=== PATIENT | male | born 1965 ===

== ENCOUNTER 2020-12-01 22:31 | Emergency (ER) | payer OTHER, MEDICAID, SELFPAY ==
[2020-12-01 22:37] VITALS: BP 147/83; PULSE 79; RESP 18; TEMP 37.1; O2SAT 97
--- NOTE | 2020-12-01 22:40 | DI.RAD.S_ITS ---
PROCEDURE: XR FOOT RT MIN 3V INDICATIONS: pain in heel after fall from ladder TECHNIQUE: 3 views of the foot were acquired. COMPARISON: None. FINDINGS: Bones: Possible nondisplaced calcaneal fracture versus artifact. No suspicious bony lesions. Soft tissues: No tibiotalar joint effusion. Achilles tendon appears normal. IMPRESSION: Possible nondisplaced calcaneal fracture versus artifact. Recommend clinical correlation and follow-up. No significant discrepancy with the night shift manager radiology preliminary report. Dictated by: Gallo Mills M.D. on 12/02/2020 at 9:20 Approved by: Gallo Mills M.D. on 12/02/2020 at 9:23
--- NOTE | 2020-12-02 00:18 | ED.LOWEXIN ---
HPI - Extremity Injury (Lower) General Chief Complaint: Extremity Injury, Lower Stated Complaint: fell off a ladder, hurt heel Time Seen by Provider: 12/02/20 00:09 Source: patient Mode of arrival: Wheelchair History of Present Illness HPI Narrative: Patient is a 55-year-old male who is not on anticoagulation who is here for evaluation of injuries that he sustained when he fell off of a ladder. He was on his ladder painting his house and the ladder was on the drop cloth. He states that ladder slipped and he fell. He did not hit his head. He did have pain to his right heel. Did sustain a cut to his left cee. Also now has slight back discomfort although he states that he has had back discomfort for some time now and does not think this fall has changed this discomfort at all. Arrived by private vehicle. Related Data Allergies Allergy/AdvReac Type Severity Reaction Status Date / Time epinephrine AdvReac Verified 12/01/20 22:38 Review of Systems Constitutional Constitutional: Denies headache(s) ENT Ears, Nose, Mouth, and Throat: Denies headache(s) Cardiovascular Cardiovascular: Reports system reviewed and no additional complaints, except as documented Respiratory Respiratory: Reports system reviewed and no additional complaints, except as documented Gastrointestinal Gastrointestinal: Reports system reviewed and no additional complaints, except as documented Genitourinary Genitourinary: Reports system reviewed and no additional complaints, except as documented Musculoskeletal Comments: Right heel pain, cut to left cee Integumentary/Breasts Comments: Cut to left cee Neurologic Neurologic: Denies headache(s) Hematologic/Lymphatic On Anticoagulants: No Patient History Medical History Healthy adult Exam Initial Vital Signs Initial Vital Signs: Vital Signs Temperature 98.7 F 12/01/20 22:37 Pulse Rate 79 12/01/20 22:37 Respiratory Rate 18 12/01/20 22:37 Blood Pressure 147/83 H 12/01/20 22:37 Pulse Oximetry 97 12/01/20 22:37 Const General: cooperative, healthy appearing and comfortable [facility] Head: normal to inspection and normocephalic Chest Chest: normal inspection of the chest Resp Effort & Inspection: normal respiratory effort Cardio Pulses: dorsalis pedis present on the right GI Inspection: normal to inspection Back/Spine/Pelvis Cervical Spine: No cervical spinal tenderness Thoracic/Lumbar Spine: No paraspinal tenderness, No thoracic spinal tenderness and No lumbar spinal tenderness Skin Other: Patient with a ?V? laceration that is approximately 6 cm total length in the anterior left cee. Neuro General: patient alert, patient awake and patient oriented x3 Extrem General: capillary refill normal Psych Appearance: grossly normal and well kempt Procedures Laceration Repair Laceration 1: Site: lower extremity Side (If applicable): left Size (cm): 6 Description: flap Depth: simple, single layer Local Anesthetic: lidocaine 1% and with bicarb Amount of anesthesia used (mL): 6 Skin layer closed with: nylon Size (cm): 4-0 Number of sutures: 6 Technique: simple, interrupted Orthopedic Splinting/Casting Injury #1: Side: right Lower Extremity Injury Location: foot Lower Extremity Immobilizer: posterior splint and stirrup splint Other Orthopedic Equipment: crutches Post splinting neuro exam: intact Post splinting vascular exam: intact Placed by: Nursing Course Orders Ordered: ED Orders 12/01/20 22:40 XR foot RT min 3V Stat Discontinued Medications Lidocaine/Sodium Bicarbonate (Lido 1%/Sod Bicarb 8.4% (10ml) 10 Ml Syringe) 10 ml INJ NOW ONE Stop: 12/02/20 00:20 Vital Signs Vital signs: Vital Signs - 8 hr 12/01/20 22:37 Temperature 98.7 F Pulse Rate 79 Respiratory Rate 18 Blood Pressure 147/83 H Pulse Oximetry 97 MDM - Extremity Injury (Lower) Imaging Data Extremity x-ray #1: Radiologist's Impression: Lucency through the posterior calcaneus on one view only likely incidental. Nondisplaced fracture is technically a possibility follow-up as clinically warranted [facility] Narrative Medical decision making narrative: Patient did sustain a fall and sustained a irregular laceration to his left anterior cee. This was closed as described above without incident. He was given care instructions for this. He does have fairly significant right heel pain. The x-ray shows what appears to be a lucency through the calcaneus and given his location of the discomfort in his fall I would suspect that this is a fracture. He was placed in a splint as described above and was also given follow-up instructions with regard to this. Given the calcaneal fracture I did evaluate his back. He has no midline tenderness on his back. He initially stated that his back was hurting but then stated that it is not any different from his normal back discomfort. He has no midline tenderness. We did discuss the concern about compression fractures however he thinks that his back is not any different than what it is at baseline so we will hold on further workup for now. He was given return precautions and follow-up instructions. He expressed understanding and agreement. Discharge Plan Departure Patient Disposition: Home Clinical Impression: Calcaneal fracture, Laceration Instructions: How to Use Crutches, DI for Foot Fracture, How to Take Care of Your Splint Activity Restrictions/Additional Instructions: The splint needs to stay on and stay clean and stay dry. Use the crutches. Do not place any weight on your right foot. You do need to contact the [facility] group at [phone] for a follow-up. The stitches that were placed do need to be removed in 7-10 days. This area you can clean with soap and water. Return to the emergency department for any new or worsening symptoms Referrals: Sunil Martínez MD [Physician] -
== END 2020-12-02 01:46 | disposition home or self-care (01) ==
PROVIDERS: Emergency Provider Emergency Medicine
DX: S92.002A Unspecified fracture of left calcaneus, initial encounter for closed fracture (principal); S81.812A Laceration without foreign body, left lower leg, initial encounter; W11.XXXA Fall on and from ladder, initial encounter
CPT/HCPCS: 12002; 29515; 73630; 99282; 99283

== ENCOUNTER → 2021-07-06 09:44 | Outpatient (CLI) | payer OTHER, MEDICAID, SELFPAY ==
[2021-07-06 19:42] LABS: COVID19 - ORCAS (NP or Nasal) Negative (Negative)
== END ==
PROVIDERS: PCP Family Medicine; Visit Provider Physician Assistant
DX: Z20.822 Contact with and (suspected) exposure to COVID-19 (principal)
CPT/HCPCS: U0003

== ENCOUNTER → 2022-06-03 09:28 | Outpatient (CLI) | payer OTHER, MEDICAID, SELFPAY ==
[2022-06-03 19:48] LABS: Alanine Aminotransferase 26 IU/L (<50); Albumin 4.2 g/dL (3.5-5.0); Albumin Globulin Ratio 1.4 (1.0-2.8); Alkaline Phosphatase 64 U/L (38-126); Aspartate Aminotransferase 20 IU/L (17-59); BUN Creatinine Ratio 19.5 (6-22); Bilirubin Total 0.5 mg/dL (0.2-1.3); Blood Urea Nitrogen 17 mg/dL (9-20); Carbon Dioxide 29 mmol/L (22-32); Chloride 100 mmol/L (98-107); Cholesterol 237 mg/dL (140-199); Estimated Glomerular Filt Rate > 60 mL/min (>60); Globulin 2.9 g/dL (1.7-4.1); Glucose 93 mg/dL (70-100); HDL Cholesterol 57 mg/dL (40-60); HEMOLYSIS < 15 (0-50); LDL Cholesterol Calculated 164 mg/dL (<100); Potassium 4.3 mmol/L (3.4-5.1); Sodium 138 mmol/L (137-145); Total Protein 7.1 g/dL (6.3-8.2); Triglycerides 80 mg/dL (35-150)
[2022-06-03 20:04] LABS: Add Manual Diff / Slide Review NO; Basophils Absolute Auto 0 /uL (0-100); Basophils Percent Auto 0.5 % (0-2); Eosinophils Absolute Auto 300 /uL (0-450); Eosinophils Percent Auto 6.1 % (2-4); Hematocrit 42.8 % (41-53); Hemoglobin 14.7 g/dL (13.5-17.5); Lymphocytes Absolute Auto 1600 /uL (1100-4500); Lymphocytes Percent Auto 31.2 % (25-40); Mean Corpuscular HGB Conc 34.3 % (30-36); Mean Corpuscular Hemoglobin 30.8 PG (26-34); Mean Corpuscular Volume 89.9 fL (80-100); Monocytes Absolute Auto 400 /uL (0-900); Monocytes Percent Auto 7.1 % (3-14); Neutrophils Absolute Auto 2800 /uL (1500-7000); Neutrophils Percent Auto 55.1 % (50-75); Platelet Count 233 X10^3/uL (150-400); Red Blood Cell Count 4.75 X10^6/uL (4.5-5.9); Red Cell Distribution Width 13.2 % (11.6-14.8)
[2022-06-03 20:16] LABS: Prostate Specific Antigen 0.462 ng/mL (0.10-4.00)
[2022-06-03 20:20] LABS: TSH w/ Reflex to FT4 0.62 uIU/mL (0.47-4.68)
== END ==
PROVIDERS: PCP Family Medicine; Visit Provider Family Medicine
DX: Z00.00 Encounter for general adult medical examination without abnormal findings (principal); N40.0 Benign prostatic hyperplasia without lower urinary tract symptoms
CPT/HCPCS: 80053; 80061; 84153; 84443; 85025

== ENCOUNTER 2022-07-05 17:50 | Emergency (ER) | payer OTHER, MEDICAID, SELFPAY ==
[2022-07-05 17:59] VITALS: BP 131/79; PULSE 89; RESP 18; TEMP 37.1; O2SAT 98; BMI 20.7
--- NOTE | 2022-07-05 18:18 | ED_ITS ---
HPI - Back Pain/Injury <Brijesh Malik, - Last Filed: 07/07/22 01:31> General Chief Complaint: Back Pain/Injury Stated Complaint: Spondylolisthesis, Sacral nerve pinched Time Seen by Provider: 07/05/22 18:18 Source: patient History of Present Illness HPI Narrative: 57-year-old male nonsmoker with history of chronic back pain and recent diagnosis of spondylolisthesis presents with worsening low back pain with radiation down his left leg. He denies any trauma, fever or chills and takes no blood thinners. He is had trouble with low back pain but over the past few weeks has had significant worsening pain. He saw his primary care provider relatively recently and had an x-ray suggesting spondylolisthesis. Yesterday his symptoms for worsening and include severe hot, sharp and burning pain starting in his left buttock and radiating down his left leg and he had been having some trouble starting his urine stream but eventually could produce urine. He has friends and family who provided him oral Dilaudid and gave him some Decadron which provided no relief. Yesterday he went to the [facility] Emergency Department and had a very thorough evaluation including a noncontrast lumbar MRI which shows a grade 1 isthmic spondylolisthesis at L5-S1 with mild bilateral foraminal stenosis but no evidence of cauda equina. Patient has prescriptions for baclofen and pain meds. He is not been on a prescription for steroids or gabapentin for some time. Today he presents with worsening pain and now numbness and weakness of his LEs leg. He states today that he has been unable to produce urine since 5:00 a.m. this morning. He has been constipated but can still produce stool and has been using enemas for relief. Related Data Previous Rx's Medication Instructions Recorded sodium sul 1.479 gram-potas ch See Rx Instructions PO PER PKG DIR 05/18/22 0.188 gram-magnes sul 0.225 gram #24 tabs tablet (Sutab) baclofen 10 mg tablet 10 mg PO QID PRN muscle spasm #60 07/01/22 tabs gabapentin 100 mg capsule 100 mg PO TID PRN nerve pain #90 07/01/22 caps hydrocodone 7.5 mg-acetaminophen 1 tab PO Q6H PRN pain #20 tabs 01/26/23 325 mg tablet methylprednisolone 4 mg tablets in 4 mg PO DAILY #21 ea 07/01/22 a dose pack (Medrol (Bernard)) dexamethasone 4 mg tablet 8 mg PO DAILY 7 days #14 tabs 07/06/22 meloxicam 15 mg tablet 15 mg PO DAILY #30 tabs 07/06/22 tamsulosin 0.4 mg capsule (Flomax) 0.4 mg PO DAILY #21 caps 07/06/22 Allergies Allergy/AdvReac Type Severity Reaction Status Date / Time epinephrine AdvReac Verified 07/05/22 17:59 Review of Systems <Brijesh Malik DO - Last Filed: 07/07/22 01:31> Review of Systems Narrative: GENERAL: Denies chills, fatigue, malaise, fever, sweats. HEENT: Denies sinus pain, ear pain, sore throat, difficulty swallowing, dizziness. RESPIRATORY: Denies dyspnea, cough, wheezing, hemoptysis, sputum. CARDIOVASCULAR: Denies chest pain, palpitations, orthopnea, edema, GASTROINTESTINAL: Denies nausea, vomiting, abdominal pain, diarrhea, constipa tion, melena. : Denies dysuria, frequency, incontinence, hematuria, urinary retention. MUSCULOSKELETAL: See HPI SKIN: Denies rash, skin lesions, or other NEUROLOGIC: See HPI PSYCHIATRIC: No concerning psychosocial issues. 12 point review of systems is negative except for those stated above Patient History <Brijesh Malik DO - Last Filed: 07/07/22 01:31> Medical History BPH (benign prostatic hyperplasia) Calcaneus fracture, right Healthy adult Preventative health care Social History Smoking Status: Never smoker Smoking Status: Never smoker alcohol intake frequency: holidays/special occasions only Substance Use Type: marijuana Exam <Brijesh Malik DO - Last Filed: 07/07/22 01:31> Narrative Exam Narrative: GENERAL: [57] year old patient appears stated age. Well-developed patient, in obvious distress. HEAD: Atraumatic. Normocephalic. EYES: Pupils equal round and reactive. Extraocular motions intact. No scleral icterus. No injection or drainage. ENT: Nose without bleeding, purulent drainage. Throat without erythema, ton sillar hypertrophy or exudate. Airway patent. NECK: Trachea midline. Non tender CARDIOVASCULAR: Regular rate and rhythm without murmurs, gallops, or rubs. RESPIRATORY: Clear to auscultation. Breath sounds equal bilaterally. No wheezes, rales, or rhonchi. GASTROINTESTINAL: Abdomen soft, non-tender, nondistended. RECTAL: good tone, no saddle anesthesia EXTREMITIES: No edema or joint tenderness. No swelling redness, or joint pain BACK: No traumatic injury, swelling or stepoffs. No saddle anesthesia, good rectal tone. RLE with normal sensation, 2+ patellar reflexes, 5/5 strength. LLE with decreased patellar refexes, 4/5 strength NEURO: AOx3. SKIN: No rash or erythema of visible areas Initial Vital Signs Initial Vital Signs: Vital Signs Temperature 98.8 F 07/05/22 17:59 Pulse Rate 89 07/05/22 17:59 Respiratory Rate 18 07/05/22 17:59 Blood Pressure 131/79 07/05/22 17:59 Pulse Oximetry 98 07/05/22 17:59 Oxygen Delivery Method 07/05/22 17:59 <Garrick Koo DO - Last Filed: 07/06/22 12:33> Initial Vital Signs Initial Vital Signs: Vital Signs Temperature 98.8 F 07/05/22 17:59 Pulse Rate 89 07/05/22 17:59 Respiratory Rate 18 07/05/22 17:59 Blood Pressure 131/79 07/05/22 17:59 Pulse Oximetry 98 07/05/22 17:59 Oxygen Delivery Method 07/05/22 17:59 Course <Brijesh Malik DO - Last Filed: 07/07/22 01:31> Orders Ordered: Discontinued Medications Dexamethasone (Dexamethasone 10 Mg/Ml Vial) 10 mg IV NOW ONE Stop: 07/05/22 21:28 Last Admin: 07/05/22 21:52 Dose: 10 mg Documented By: KRYSTIN Gabapentin (Gabapentin 300 Mg Capsule) 300 mg PO NOW ONE Stop: 07/05/22 21:28 Last Admin: 07/05/22 22:09 Dose: 300 mg Documented By: BS Hydromorphone HCl (Hydromorphone 0.5 Mg Inj) 0.5 mg IV NOW ONE Stop: 07/05/22 21:28 Last Admin: 07/05/22 22:06 Dose: 0.5 mg Documented By: KRYSTIN Hydromorphone HCl (Hydromorphone 0.5 Mg Inj) 0.5 mg IV NOW ONE Stop: 07/06/22 05:44 Last Admin: 07/06/22 06:07 Dose: 0.5 mg Documented By: OBDULIO Hydromorphone HCl (Hydromorphone 0.5 Mg Inj) 0.5 mg IV NOW ONE Stop: 07/06/22 11:27 Last Admin: 07/06/22 11:39 Dose: 0.5 mg Documented By: ARIANNE Ketorolac Tromethamine (Ketorolac 30 Mg/Ml Vial) 15 mg IV NOW ONE Stop: 07/05/22 21:28 Last Admin: 07/05/22 21:51 Dose: 15 mg Documented By: KRYSTIN Lidocaine HCl (Lidocaine 2% (Glydo) 6 Ml Gel) 6 ml TOP NOW ONE Stop: 07/05/22 19:28 Last Admin: 07/05/22 19:30 Dose: 6 ml Documented By: RB Tamsulosin HCl (Tamsulosin 0.4 Mg Capsule) 0.4 mg PO NOW ONE Stop: 07/06/22 01:20 Last Admin: 07/06/22 02:02 Dose: 0.4 mg Documented By: REBEKAH Reevaluation(s) Reevaluation #1: some improvement after above stated therapies Consultations Consultation #1: call to Dr. Romero to discuss. No response after a few messages Consultation #2: call to [facility] to discuss Dr. Genao ([facility]) has called back and was involved in patient's care yesterday. He reviewed the history and physical including evolution of symptoms and reassessed patient's MRI. He does recommend a CT of the pelvis without IV contrast as there are some potential abnormal findings in the bilateral sacral ala. Furthermore, he states that yesterday they had discussed whether not there maybe utility in ordering a noncontrasted thoracic MRI and recommended that we perform that and states that it seems reasonable to repeat the lumbar MRI given his change in symptoms. Finally, he states that there is not, at this time, any indication or need for transfer or immediate intervention Time: 00:29 Vital Signs Vital signs: Vital Signs - 8 hr 07/06/22 11:42 07/06/22 11:41 07/06/22 11:41 Pulse Rate 106 H 104 H Respiratory Rate 19 Blood Pressure 130/90 130/90 Pulse Oximetry 98 98 Oxygen Delivery Method Room Air 07/06/22 11:45 07/06/22 11:50 07/06/22 11:55 Pulse Rate 103 H 84 85 Respiratory Rate Blood Pressure Pulse Oximetry 97 96 Oxygen Delivery Method 07/06/22 12:00 07/06/22 12:00 07/06/22 12:05 Pulse Rate 87 89 Respiratory Rate Blood Pressure 108/65 Pulse Oximetry 94 95 Oxygen Delivery Method 07/06/22 12:10 07/06/22 12:15 07/06/22 12:20 Pulse Rate 93 H 100 H 94 H Respiratory Rate Blood Pressure Pulse Oximetry 98 96 95 Oxygen Delivery Method 07/06/22 12:25 07/06/22 12:30 07/06/22 12:30 Pulse Rate 99 H 103 H Respiratory Rate Blood Pressure 143/89 H Pulse Oximetry 95 94 Oxygen Delivery Method 07/06/22 12:35 07/06/22 12:40 07/06/22 12:43 Pulse Rate 107 H 115 H Respiratory Rate Blood Pressure 136/78 Pulse Oximetry 94 93 Oxygen Delivery Method 07/06/22 12:43 07/06/22 12:45 Pulse Rate 85 117 H Respiratory Rate Blood Pressure Pulse Oximetry 95 Oxygen Delivery Method <Garrick Koo DO - Last Filed: 07/06/22 12:33> Orders Ordered: Discontinued Medications Dexamethasone (Dexamethasone 10 Mg/Ml Vial) 10 mg IV NOW ONE Stop: 07/05/22 21:28 Last Admin: 07/05/22 21:52 Dose: 10 mg Documented By: KRYSTIN Gabapentin (Gabapentin 300 Mg Capsule) 300 mg PO NOW ONE Stop: 07/05/22 21:28 Last Admin: 07/05/22 22:09 Dose: 300 mg Documented By: KRYSTIN Hydromorphone HCl (Hydromorphone 0.5 Mg Inj) 0.5 mg IV NOW ONE Stop: 07/05/22 21:28 Last Admin: 07/05/22 22:06 Dose: 0.5 mg Documented By: KRYSTIN Hydromorphone HCl (Hydromorphone 0.5 Mg Inj) 0.5 mg IV NOW ONE Stop: 07/06/22 05:44 Last Admin: 07/06/22 06:07 Dose: 0.5 mg Documented By: OBDULIO Hydromorphone HCl (Hydromorphone 0.5 Mg Inj) 0.5 mg IV NOW ONE Stop: 07/06/22 11:27 Last Admin: 07/06/22 11:39 Dose: 0.5 mg Documented By: ARIANNE Ketorolac Tromethamine (Ketorolac 30 Mg/Ml Vial) 15 mg IV NOW ONE Stop: 07/05/22 21:28 Last Admin: 07/05/22 21:51 Dose: 15 mg Documented By: KRYSTIN Lidocaine HCl (Lidocaine 2% (Glydo) 6 Ml Gel) 6 ml TOP NOW ONE Stop: 07/05/22 19:28 Last Admin: 07/05/22 19:30 Dose: 6 ml Documented By: RB Tamsulosin HCl (Tamsulosin 0.4 Mg Capsule) 0.4 mg PO NOW ONE Stop: 07/06/22 01:20 Last Admin: 07/06/22 02:02 Dose: 0.4 mg Documented By: REBEKAH Vital Signs Vital signs: Vital Signs - 8 hr 07/06/22 11:42 07/06/22 11:41 07/06/22 11:41 Pulse Rate 106 H 104 H Respiratory Rate 19 Blood Pressure 130/90 130/90 Pulse Oximetry 98 98 Oxygen Delivery Method Room Air 07/06/22 11:45 07/06/22 11:50 07/06/22 11:55 Pulse Rate 103 H 84 85 Respiratory Rate Blood Pressure Pulse Oximetry 97 96 Oxygen Delivery Method 07/06/22 12:00 07/06/22 12:00 07/06/22 12:05 Pulse Rate 87 89 Respiratory Rate Blood Pressure 108/65 Pulse Oximetry 94 95 Oxygen Delivery Method 07/06/22 12:10 07/06/22 12:15 07/06/22 12:20 Pulse Rate 93 H 100 H 94 H Respiratory Rate Blood Pressure Pulse Oximetry 98 96 95 Oxygen Delivery Method 07/06/22 12:25 07/06/22 12:30 07/06/22 12:30 Pulse Rate 99 H 103 H Respiratory Rate Blood Pressure 143/89 H Pulse Oximetry 95 94 Oxygen Delivery Method 07/06/22 12:35 07/06/22 12:40 07/06/22 12:43 Pulse Rate 107 H 115 H Respiratory Rate Blood Pressure 136/78 Pulse Oximetry 94 93 Oxygen Delivery Method 07/06/22 12:43 07/06/22 12:45 Pulse Rate 85 117 H Respiratory Rate Blood Pressure Pulse Oximetry 95 Oxygen Delivery Method MDM - Back Pain/Injury <Brijesh King, DO - Last Filed: 07/07/22 01:31> Lab Data 07/05/22 22:00 07/05/22 22:00 Labs: Lab Results 07/05/22 07/05/22 Range/Units 22:00 22:00 WBC 5.7 (4.5-11.0) X10^3/uL RBC 4.93 (4.5-5.9) X10^6/uL Hgb 15.1 (13.5-17.5) g/dL Hct 44.3 (41-53) % MCV 89.7 (80-100) fL MCH 30.6 (26-34) PG MCHC 34.1 (30-36) % RDW 13.2 (11.6-14.8) % Plt Count 241 (150-400) X10^3/uL Neut % (Auto) 54.0 (50-75) % Lymph % (Auto) 35.2 (25-40) % [place] % (Auto) 7.8 (3-14) % Eos % (Auto) 2.3 (2-4) % Baso % (Auto) 0.7 (0-2) % Neut # (Auto) 3100 (3084-0872) /uL Lymph # (Auto) 2000 (8932-0982) /uL [place] # (Auto) 400 (0-900) /uL Eos # (Auto) 100 (0-450) /uL Baso # (Auto) 0 (0-100) /uL ESR 7 (0-15) MM/HR Sodium 140 (137-145) mmol/L Potassium 3.9 (3.4-5.1) mmol/L Chloride 102 (98-107) mmol/L Carbon Dioxide 27 (22-32) mmol/L BUN 17 (9-20) mg/dL Creatinine 0.69 (0.66-1.25) mg/dL Estimated GFR > 60 (>60) mL/min BUN/Creatinine Ratio 24.6 H (6-22) Glucose 140 H (70-100) mg/dL Calcium 8.6 (8.4-10.2) mg/dL C-Reactive Protein < 0.5 (<1.0) mg/dL [facility] Narrative Medical decision making narrative: CC: 57-year-old male with worsening left lower back pain, radiation down his left leg with new numbness, weakness and worsening urinary retention Complicating co-morbidities: Age greater than 50 Data collected from: Patient and Medical records reviewed: Including records from [facility] yesterday via [employer] Differential considered, but not limited to: Cauda equina, epidural abscess, epidural hematoma, versus other Exam documented above, pertinent findings include: Measurable left lower extremity weakness, numbness and newly discovered decreased reflexes. Patient does have rectal tone and there is no evidence of saddle anesthesia Lab Test results independently reviewed as above. Pertinent findings: No significant findings Imaging studies independently reviewed: Consultations: Dr. Genao ([facility]) Treatments: Flomax, Gabapentin, Decadron, Toradol Re-evaluations: noted improvement after above stated theraipes Discussion: <Garrick Koo DO - Last Filed: 07/06/22 12:33> Lab Data Labs: Lab Results 07/05/22 07/05/22 Range/Units 22:00 22:00 WBC 5.7 (4.5-11.0) X10^3/uL RBC 4.93 (4.5-5.9) X10^6/uL Hgb 15.1 (13.5-17.5) g/dL Hct 44.3 (41-53) % MCV 89.7 (80-100) fL MCH 30.6 (26-34) PG MCHC 34.1 (30-36) % RDW 13.2 (11.6-14.8) % Plt Count 241 (150-400) X10^3/uL Neut % (Auto) 54.0 (50-75) % Lymph % (Auto) 35.2 (25-40) % [place] % (Auto) 7.8 (3-14) % Eos % (Auto) 2.3 (2-4) % Baso % (Auto) 0.7 (0-2) % Neut # (Auto) 3100 (7430-1829) /uL Lymph # (Auto) 2000 (1566-8092) /uL [place] # (Auto) 400 (0-900) /uL Eos # (Auto) 100 (0-450) /uL Baso # (Auto) 0 (0-100) /uL ESR 7 (0-15) MM/HR Sodium 140 (137-145) mmol/L Potassium 3.9 (3.4-5.1) mmol/L Chloride 102 (98-107) mmol/L Carbon Dioxide 27 (22-32) mmol/L BUN 17 (9-20) mg/dL Creatinine 0.69 (0.66-1.25) mg/dL Estimated GFR > 60 (>60) mL/min BUN/Creatinine Ratio 24.6 H (6-22) Glucose 140 H (70-100) mg/dL Calcium 8.6 (8.4-10.2) mg/dL C-Reactive Protein < 0.5 (<1.0) mg/dL Imaging Data Thoracic spine MRI: Radiologist's Impression: [address] [address] Magnetic Resonance Report Signed Patient: Raj Mejia MR#: [id number] : 1965 Acct:[id number] Age/Sex: 57 / M Date of Service: 07/06/22 Loc: ED Accession Number: [id number] ?? Procedure: MR thoracic spine wo con Ordering Provider: Brijesh Malik D.O. PROCEDURE:? MR THORACIC SPINE WO CON ? INDICATIONS:? requests per [facility] ? TECHNIQUE:? Noncontrast sagittal T1 spine echo and T2 fast spin echo, sagittal STIR, and T2 fast spin echo through the thoracic spine.? ? COMPARISON:? None. ? FINDINGS:? Image quality:? Good ? Alignment:? No spondylolisthesis ? Marrow:? No acute fracture.? No spondylolisthesis.? Minimal multilevel spondylosis, with some endplate changes in the thoracolumbar junction. ? Cord:? Overall normal signal. ? Soft tissues:? Unremarkable ? Specific levels: No high-grade thecal sac stenosis or neural foraminal stenosis noted in the thoracic spine. At the T7-T8 level, there is a right paracentral disc protrusion that mildly narrows the subarticular space. ? IMPRESSION:? No acute abnormality identified in the thoracic spine.? Overall minimal spondylosis without critical stenosis.? Right T7-T8 paracentral disc protrusion in close proximity to the right joanna cord (10/4).? Lumbar spine findings are separately dictated. ? ? Dictated by: Dallas Rajan M.D. on 07/06/2022 at 9:50 ? ? Approved by: Dallas Rajan M.D. on 07/06/2022 at 9:54?? Lumbar spine MRI: Radiologist's Impression: [address] [address] Magnetic Resonance Report Signed Patient: Raj Mejia MR#: [id number] : 1965 Acct:[id number] Age/Sex: 57 / M Date of Service: 07/06/22 Loc: ED Accession Number: [id number] ?? Procedure: MR lumbar spine wo con Ordering Provider: Brijesh Malik D.O. PROCEDURE:? MR LUMBAR SPINE WO CON ? INDICATIONS:? LLE weak, urinary retention ? TECHNIQUE:? Noncontrast sagittal T1 spin echo and T2 fast echo, sagittal STIR, and T2 fast spin echo through the lumbar spine.? In cases with scoliosis, additional coronal T2 fast spin echo may be performed.? ? COMPARISON:? None. ? FINDINGS:? Image quality:? Good ? Alignment:? Grade 1 retrolisthesis of L1 on L2 and L2 on L3.? Grade 1 anterolisthesis of L5 on S1. ? Marrow:? No acute fractures.? Endplate deformities and Modic changes, along with disc desiccation. ? Cord:? Terminates in normal position.? Normal appearance of the cauda equina nerve roots. ? Soft tissues:? Overall unremarkable ? Specific levels: T12-L1:? Mild diffuse disc bulge with a left paracentral and foraminal protrusio n.? Mild left subarticular recess narrowing.? Moderate left neural foraminal narrowing. L1-L2:? Moderate diffuse disc bulge.? Facet arthropathy.? Moderate central narrowing affecting both subarticular recesses.? Moderate bilateral neural foraminal narrowing. L2-L3:? Smaller diffuse disc bulge.? Mild facet arthropathy bilaterally.? Mild central narrowing affecting both subarticular recesses.? Mild to moderate right and left neural foraminal narrowing. L3-L4:? Diffuse disc bulge.? Xgbs-dl-dzfbybja facet arthropathy.? Mild central narrowing. ?Moderate left and inwd-va-ojulwjea right neural foraminal narrowing. L4-L5:? Eftc-gq-souzgofs facet arthropathy.? No stenosis. L5-S1:? There is uncovering of the disc.? No central stenosis.? Mild bilateral neural foraminal narrowing. ? IMPRESSION:? Wrrs-dr-wqqowaot spondylosis as described above, worst at L1-L2.? ? Dictated by: Dallas Rajan M.D. on 07/06/2022 at 10:01 ? ? Approved by: Dallas Rajan M.D. on 07/06/2022 at 10:05? MDM Narrative Medical decision making narrative: CC: 57-year-old male with worsening left lower back pain, radiation down his left leg with new numbness, weakness and worsening urinary retention Complicating co-morbidities: Age greater than 50 Data collected from: Patient and Medical records reviewed: Including records from [facility] yesterday via [employer] Differential considered, but not limited to: Cauda equina, epidural abscess, epidural hematoma, versus other Exam documented above, pertinent findings include: Measurable left lower extremity weakness, numbness and newly discovered decreased reflexes. Patient does have rectal tone and there is no evidence of saddle anesthesia Lab Test results independently reviewed as above. Pertinent findings: No significant findings Imaging studies independently reviewed: Consultations: Dr. Genao ([facility]) Treatments: Flomax, Gabapentin, Decadron, Toradol Re-evaluations: noted improvement after above stated theraipes Discussion: Dr koo: Received turned over. Assumed care of patient. The patient's history and physical exam. MRI today shows no signs of an acute surgical pa thology. No signs of cauda equina. I did discuss the case with Dr. Saundra munoz S Orthopedic spine surgery who also reviewed the MRI who stated that there was no emergent/urgent spinal pathology. The discuss this with the patient and his . He does have urinary catheter in place. We discussed removing the catheter versus discharging him home with a catheter in place. He opted to keep the catheter in place. Will start him on Flomax and he was given information to follow-up with urology. He has pain medication at home. Will place him on steroids. He stated that Mobic seem to help him in the past so he is given a prescription for this as well. He was given information to follow-up with o rthopedic spine. Will discharge patient home with return precautions. He expressed understanding and agreement. Discharge Plan Departure Patient Disposition: Home Clinical Impression: Acute urinary retention, Lower back pain Instructions: How to Care for Your Olmstead Catheter -- Male, DI for Low Back Pain , DI for Urinary Retention in Men Activity Restrictions/Additional Instructions: I do recommend that you contact the urologist for a follow-up with regard to the Olmstead catheter. You can also contact the orthopedic spine surgeons at the number provided below for follow-up as well. Take all the medications as directed. Contact your primary doctor for a follow-up. Prescriptions: New meloxicam 15 mg tablet 15 mg PO DAILY Qty: 30 0RF dexamethasone 4 mg tablet 8 mg PO DAILY 7 Days Qty: 14 0RF tamsulosin [Flomax] 0.4 mg capsule 0.4 mg PO DAILY Qty: 21 0RF No Action Sutab 1.479-0.188- 0.225 gram tablet See Rx Instructions PO PER PKG DIR Qty: 24 0RF Rx Instructions: Take as directed by Physician gabapentin 100 mg capsule 100 mg PO TID PRN (Reason: nerve pain) Qty: 90 0RF methylprednisolone [Medrol (Bernard)] 4 mg tablets,dose pack 4 mg PO DAILY Qty: 21 0RF hydrocodone-acetaminophen 7.5-325 mg tablet 1 tab PO Q6H PRN (Reason: pain) Qty: 20 0RF baclofen 10 mg tablet 10 mg PO QID PRN (Reason: muscle spasm) Qty: 60 0RF Referrals: Chelsea Lewis MD [Physician] - Jerod Arguello MD [Physician] - Santosh Saini DO [Primary Care Provider] - Stand Alone Forms: Patient Portal/API
[2022-07-05] MEDS: LIDOCAINE 2% (GLYDO) 6 ML GEL TOP (19:30)
[2022-07-05] MEDS: KETOROLAC 30 MG/ML VIAL 15 MG IV (21:51)
[2022-07-05] MEDS: DEXAMETHASONE 10 MG/ML VIAL IV (21:52)
[2022-07-05] MEDS: HYDROMORPHONE 0.5 MG INJ IV (22:06)
[2022-07-05] MEDS: GABAPENTIN 300 MG CAPSULE PO (22:09)
[2022-07-05 22:28] LABS: Add Manual Diff / Slide Review NO; Basophils Absolute Auto 0 /uL (0-100); Basophils Percent Auto 0.7 % (0-2); Eosinophils Absolute Auto 100 /uL (0-450); Eosinophils Percent Auto 2.3 % (2-4); Hematocrit 44.3 % (41-53); Hemoglobin 15.1 g/dL (13.5-17.5); Lymphocytes Absolute Auto 2000 /uL (1100-4500); Lymphocytes Percent Auto 35.2 % (25-40); Mean Corpuscular HGB Conc 34.1 % (30-36); Mean Corpuscular Hemoglobin 30.6 PG (26-34); Mean Corpuscular Volume 89.7 fL (80-100); Monocytes Absolute Auto 400 /uL (0-900); Monocytes Percent Auto 7.8 % (3-14); Neutrophils Absolute Auto 3100 /uL (1500-7000); Platelet Count 241 X10^3/uL (150-400); Red Blood Cell Count 4.93 X10^6/uL (4.5-5.9); Red Cell Distribution Width 13.2 % (11.6-14.8); White Blood Cell Count 5.7 X10^3/uL (4.5-11.0)
[2022-07-05 22:31] LABS: BUN Creatinine Ratio 24.6 (6-22); Blood Urea Nitrogen 17 mg/dL (9-20); Calcium 8.6 mg/dL (8.4-10.2); Carbon Dioxide 27 mmol/L (22-32); Chloride 102 mmol/L (98-107); Estimated Glomerular Filt Rate > 60 mL/min (>60); Glucose 140 mg/dL (70-100); HEMOLYSIS 33 (0-50); Potassium 3.9 mmol/L (3.4-5.1); Sodium 140 mmol/L (137-145)
[2022-07-05 22:49] LABS: Erythrocyte Sedimentation Rate 7 MM/HR (0-15)
[2022-07-05 22:51] LABS: C-Reactive Protein Quant < 0.5 mg/dL (<1.0)
[2022-07-06] VITALS (16 sets, daily range): BP systolic 108–143; BP diastolic 65–90; PULSE 84–117; RESP 19; O2SAT 93–98
--- NOTE | 2022-07-06 01:29 | DI.MRI.S_ITS ---
PROCEDURE: MR THORACIC SPINE WO CON INDICATIONS: requests per [facility] TECHNIQUE: Noncontrast sagittal T1 spine echo and T2 fast spin echo, sagittal STIR, and T2 fast spin echo through the thoracic spine. COMPARISON: None. FINDINGS: Image quality: Good Alignment: No spondylolisthesis Marrow: No acute fracture. No spondylolisthesis. Minimal multilevel spondylosis, with some endplate changes in the thoracolumbar junction. Cord: Overall normal signal. Soft tissues: Unremarkable Specific levels: No high-grade thecal sac stenosis or neural foraminal stenosis noted in the thoracic spine. At the T7-T8 level, there is a right paracentral disc protrusion that mildly narrows the subarticular space. IMPRESSION: No acute abnormality identified in the thoracic spine. Overall minimal spondylosis without critical stenosis. Right T7-T8 paracentral disc protrusion in close proximity to the right joanna cord (10/4). Lumbar spine findings are separately dictated. Dictated by: Dallas Rajan M.D. on 07/06/2022 at 9:50 Approved by: Dallas Rajan M.D. on 07/06/2022 at 9:54
--- NOTE | 2022-07-06 01:29 | DI.CT.S_ITS ---
PROCEDURE: CT PEL WO CON INDICATIONS: severe LLE pain, requests per [facility] TECHNIQUE: Noncontrast 3 mm axial sections acquired through the bony pelvis, with coronal and sagittal reformatting. COMPARISON: None. FINDINGS: Image quality: Excellent. Bones: No fracture or dislocation. There are bilateral pars defects at L5 with mild anterolisthesis of L5 on S1 measuring approximately 0.6 cm as well as moderate to severe degeneration at L5-S1. Soft tissues: No intraperitoneal free fluid within the pelvis. Visualized bowel loops are normal in caliber and contour. There is a Olmstead catheter within the bladder which remains markedly distended. There is a small fat-containing umbilical hernia. IMPRESSION: 1. No discrete fracture identified. 2. Bilateral pars defects at L5 with associated anterolisthesis as described. Dictated by: Tico Swan M.D. on 07/06/2022 at 1:57 Approved by: Tico Swan M.D. on 07/06/2022 at 2:01
--- NOTE | 2022-07-06 01:29 | DI.MRI.S_ITS ---
PROCEDURE: MR LUMBAR SPINE WO CON INDICATIONS: LLE weak, urinary retention TECHNIQUE: Noncontrast sagittal T1 spin echo and T2 fast echo, sagittal STIR, and T2 fast spin echo through the lumbar spine. In cases with scoliosis, additional coronal T2 fast spin echo may be performed. COMPARISON: None. FINDINGS: Image quality: Good Alignment: Grade 1 retrolisthesis of L1 on L2 and L2 on L3. Grade 1 anterolisthesis of L5 on S1. Marrow: No acute fractures. Endplate deformities and Modic changes, along with disc desiccation. Cord: Terminates in normal position. Normal appearance of the cauda equina nerve roots. Soft tissues: Overall unremarkable Specific levels: T12-L1: Mild diffuse disc bulge with a left paracentral and foraminal protrusion. Mild left subarticular recess narrowing. Moderate left neural foraminal narrowing. L1-L2: Moderate diffuse disc bulge. Facet arthropathy. Moderate central narrowing affecting both subarticular recesses. Moderate bilateral neural foraminal narrowing. L2-L3: Smaller diffuse disc bulge. Mild facet arthropathy bilaterally. Mild central narrowing affecting both subarticular recesses. Mild to moderate right and left neural foraminal narrowing. L3-L4: Diffuse disc bulge. Dkrb-xq-bjjfrcgg facet arthropathy. Mild central narrowing. Moderate left and rjiq-dd-fgflgvsz right neural foraminal narrowing. L4-L5: Nrwp-dv-nkqjsake facet arthropathy. No stenosis. L5-S1: There is uncovering of the disc. No central stenosis. Mild bilateral neural foraminal narrowing. IMPRESSION: Kyhw-fs-lrknifjh spondylosis as described above, worst at L1-L2. Dictated by: Dallas Rajan M.D. on 07/06/2022 at 10:01 Approved by: Dallas Rajan M.D. on 07/06/2022 at 10:05
[2022-07-06] MEDS: TAMSULOSIN 0.4 MG CAPSULE PO (02:02)
[2022-07-06] MEDS: HYDROMORPHONE 0.5 MG INJ IV ×2 (06:07→11:39)
== END 2022-07-06 13:27 | disposition home or self-care (01) ==
PROVIDERS: Emergency Medicine; Emergency Provider Emergency Medicine; PCP Family Medicine
DX: R33.8 Other retention of urine (principal); M54.50 Low back pain, unspecified
CPT/HCPCS: 72146; 72148; 72192; 80048; 85025; 85651; 86140; 96374; 96375; 96376; 99284; J1100; J1170; J1885

== ENCOUNTER 2022-08-03 10:24 | Day surgery (SDC) | payer OTHER, MEDICAID, SELFPAY ==
[2022-08-03 11:12] VITALS: BMI 21.8
[2022-08-03 11:17] VITALS: BP 155/97; PULSE 95; RESP 20; TEMP 37.1; O2SAT 100
--- NOTE | 2022-08-03 13:01 | PM.HP.1 ---
History of Present Illness History of Present Illness Date Patient Seen: 08/03/22 Time Patient Seen: 13:01 Chief complaint: SDC Narrative: The patient presents for colorectal screening. They have never had any previous examination for such. No personal or family history of colon cancer. On further history denies any recent gastrointestinal symptoms. No nausea, vomiting, abdominal pain, loss of appetite, unexplained weight loss, change in bowel habits, or blood per rectum. Patient History Medical History BPH (benign prostatic hyperplasia) Calcaneus fracture, right Healthy adult Preventative health care Family & Social History Tobacco & Substance use: Smoking Status Never smoker alcohol intake frequency holiday/special occasion Substance Use Type marijuana Meds Home Medications and Allergies Home Medications Medication Instructions Recorded Confirmed Type baclofen 20 mg tablet 20 mg PO QID #120 tabs 07/29/22 08/03/22 Rx gabapentin 300 mg capsule 300 mg PO TID #120 caps 07/29/22 08/03/22 Rx Allergies Allergy/AdvReac Type Severity Reaction Status Date / Time epinephrine AdvReac Verified 07/29/22 09:40 fentanyl AdvReac Nausea Verified 08/03/22 11:12 Exam Vital Signs (past 8 hours): - 08/03/22 11:17 Temperature 98.7 F Pulse Rate 95 H Respiratory Rate 20 Blood Pressure 155/97 H Pulse Oximetry 100 Oxygen Delivery Method Room Air Oxygen Delivery Method Room Air Narrative Exam Narrative: General adult man alert oriented no acute distress Assessment & Plan Assessment & Plan narrative: The patient requires colorectal screening and colonoscopy is recommended. Technical details were discussed. Risks, benefits, alternatives explained. Risks including but not limited to myocardial infarction, aspiration, bleeding, pain, missed lesion, incomplete examination, need for further radiographic studies, colonic perforation, and need for major abdominal surgery were discussed. All questions were answered to their satisfaction, and they are in agreement with this plan. Time Spent With Patient Critical Care time: I spent a total of [] minutes of critical care time on this patient's care today; this time is exclusive of procedural time.
[2022-08-03 13:02] VITALS: BP 121/85; PULSE 94; RESP 16; TEMP 36.6; O2SAT 98
--- NOTE | 2022-08-03 13:02 | PM.OP.COLON ---
Operative Date/Time/Diagnoses Date of procedure: 08/03/22 Time of procedure: 13:02 Pre-op diagnosis: Colorectal screening Post-op diagnosis: same Procedure & Clinicians Study performed: Colonoscopy Same procedure as scheduled: Yes Indications: Colorectal screening Surgeon: Alex Taylor Procedure Notes Procedure in detail: The history and physical was performed/updated and the patient is ASA class is 2. The procedure was discussed in detail with the patient. Potential risks complications including infection, bleeding, missed diagnosis, perforation, need for surgery, and were explained. Their questions were answered and informed consent was obtained. Patient was brought to the procedure room and placed standard monitoring equipment. The patient's vital signs were monitored continuously throughout the entire procedure. Prior to starting time-out was performed. The patient was placed in the left lateral recumbent position. Procedural sedation was administered by anesthesia. Examination began with a thorough inspection of the perianal area there was no evidence of fissures, fistulae, external hemorrhoids or cutaneous malignancy. The colonoscopy scope was then placed into the anal canal and was advanced to the cecum, which was identified by the ileocecal valve, the appendiceal orifice and the confluence of the taenia. The scope was then slowly withdrawn examining colon thoroughly in all directions, irrigating it of any residual stool. Normal healthy colon. No masses polyps or inflammation. The patient tolerated the procedure well. They will be discharged once criteria are met. The prep was of fair quality. The withdrawl time was 6 minutes. Specimen(s): none sent Impression: normal colonoscopy Post-procedure Recommendations: Colonoscopy in 10 years and High fiber diet Disposition: same day surgery
[2022-08-03 13:07] VITALS: BP 122/83; PULSE 85; RESP 12; O2SAT 98
[2022-08-03 13:13] VITALS: BP 107/79; PULSE 92; RESP 11; O2SAT 98
[2022-08-03 13:20] VITALS: BP 134/90; PULSE 71; RESP 16; O2SAT 98
[2022-08-03] MEDS: LACTATED RINGERS 1,000 ML 200 ML IV (13:31)
== END 2022-08-03 14:00 | disposition home or self-care (01) ==
PROVIDERS: PCP Physician Assistant Medical; Referring Provider Surgery; Visit Provider Surgery
PROC: 0DJD8ZZ Inspection of Lower Intestinal Tract, Via Natural or Artificial Opening Endoscopic (ICD-10-PCS; CPT 45378; principal; 2022-08-03 11:15)
DX: Z12.11 Encounter for screening for malignant neoplasm of colon (principal)
CPT/HCPCS: 45378; J2704

== ENCOUNTER → 2023-08-24 19:38 | Outpatient (ROUT) | payer OTHER, MEDICAID, SELFPAY ==
[2023-09-11 01:07] LABS: Salivary Cortisol #2 0.111 ug/dL (.)
== END ==
PROVIDERS: PCP Physician Assistant Medical; Visit Provider Naturopath
DX: F41.9 Anxiety disorder, unspecified (principal); F90.9 Attention-deficit hyperactivity disorder, unspecified type; F43.12 Post-traumatic stress disorder, chronic; F33.41 Major depressive disorder, recurrent, in partial remission; L30.9 Dermatitis, unspecified; G47.00 Insomnia, unspecified
CPT/HCPCS: 82533

== ENCOUNTER → 2023-08-25 14:08 | Outpatient (CLI) | payer OTHER, MEDICAID, SELFPAY ==
[2023-08-25 19:10] LABS: C-Reactive Protein Quant < 0.5 mg/dL (<1.0)
[2023-08-25 20:15] LABS: Erythrocyte Sedimentation Rate 6 MM/HR (0-15)
== END ==
PROVIDERS: PCP Physician Assistant Medical; Visit Provider Naturopath
DX: F41.9 Anxiety disorder, unspecified (principal); F90.9 Attention-deficit hyperactivity disorder, unspecified type; F43.12 Post-traumatic stress disorder, chronic; F33.1 Major depressive disorder, recurrent, moderate; L30.9 Dermatitis, unspecified; G47.00 Insomnia, unspecified
CPT/HCPCS: 85651; 86140

== ENCOUNTER → 2024-04-03 11:08 | Outpatient (CLI) | payer OTHER, MEDICAID, SELFPAY ==
--- NOTE | 2024-04-03 11:10 | DI.MRI.S_ITS ---
PROCEDURE: MR LUMBAR SPINE WO CON INDICATIONS: History of lumbar fusion. Concern for hardware motion TECHNIQUE: Noncontrast sagittal T1 spin echo and T2 fast echo, sagittal STIR, and T2 fast spin echo through the lumbar spine. In cases with scoliosis, additional coronal T2 fast spin echo may be performed. COMPARISON: [facility], MR, MR LUMBAR SPINE WO CON, 07/06/2022, 8:07. FINDINGS: Image quality: Excellent. Alignment and Curvature: Mild retrolisthesis of L1 on L2 and L2 on L3. Resolution of prior L5-S1 anterolisthesis. Bone Marrow: Degenerative endplate changes, most pronounced at L1-L2. Posterior spinal fixation at L5-S1 with discectomy. Marrow is of normal overall signal. No acute vertebral body compression fractures. Spinal Cord: Conus medullaris terminates at the T12-L1 level. Visualized cord demonstrates normal signal and size. Paraspinous Soft Tissues: No paravertebral masses. T12-L1: Disc desiccation and mild disc bulge. Facet arthropathy. No central canal stenosis. Moderate left and no right neural foraminal stenosis is stable. L1-L2: Disc desiccation and moderate height loss. Diffuse disc bulge. Facet arthropathy and thickening of ligamentum flavum. Moderate central canal stenosis. Moderate bilateral neural foraminal stenosis. Stable compared to prior. L2-L3: Disc desiccation and mild height loss. Diffuse disc bulge. Facet arthropathy. Mild central canal stenosis. Gmyf-jk-otjwwhdm bilateral neural foraminal stenosis is stable. L3-L4: Disc desiccation and mild height loss. Diffuse disc bulge. Facet arthropathy. Mild central canal stenosis. Moderate left and itgc-dn-dadfuijg right neural foraminal stenosis. L4-L5: Facet arthropathy. No central canal or neural foraminal stenosis. L5-S1: Postoperative changes. No central canal stenosis. No neural foraminal stenosis. IMPRESSION: 1. Multilevel degenerative changes of the lumbar spine status post L5-S1 posterior spinal fixation. Please note, evaluation of hardware is limited by MRI, if there is concern for loosening, CT may be of value for further evaluation. 2. Moderate central canal stenosis at L1-L2. Mild central canal stenosis at L2-L3 and L3-L4. 3. Multilevel mild and moderate neural foraminal stenosis is stable compared to prior. Dictated by: Osei Delcid M.D. on 04/03/2024 at 12:40 Approved by: Osei Delcid M.D. on 04/03/2024 at 12:45
== END ==
PROVIDERS: PCP Physician Assistant Medical; Referring Provider Physician Assistant; Visit Provider Physician Assistant
DX: M48.061 Spinal stenosis, lumbar region without neurogenic claudication (principal); M47.816 Spondylosis without myelopathy or radiculopathy, lumbar region; M54.50 Low back pain, unspecified; M79.605 Pain in left leg; Z98.1 Arthrodesis status
CPT/HCPCS: 72148

== ENCOUNTER → 2024-10-03 13:23 | Outpatient (CLI) | payer OTHER, SELFPAY ==
[2024-10-05 13:41] LABS: Interpretation Negative (Negative)
== END ==
PROVIDERS: PCP Physician Assistant; Referring Provider Family Medicine; Visit Provider Family Medicine
DX: R19.7 Diarrhea, unspecified (principal); R10.9 Unspecified abdominal pain
CPT/HCPCS: 83013

== ENCOUNTER → 2024-10-04 07:00 | Outpatient (CLI) | payer OTHER, SELFPAY | PROVIDERS: PCP Physician Assistant; Visit Provider Family Medicine | DX: R19.7 Diarrhea, unspecified (principal); K52.9 Noninfective gastroenteritis and colitis, unspecified | CPT/HCPCS: 87177 ==

== ENCOUNTER → 2024-11-14 11:17 | Outpatient (CLI) | payer OTHER, SELFPAY ==
--- NOTE | 2024-11-14 11:17 | DI.CT.S_ITS ---
PROCEDURE: CT LUMBAR SPINE WO CON INDICATIONS: further evaluate surgical hardware for loosening TECHNIQUE: Noncontrast 3 mm thick sections acquired from the T12 level to the sacrum. Sagittal and coronal reformats were constructed. For radiation dose reduction, the following was used: automated exposure control. COMPARISON: [facility], MR, MR LUMBAR SPINE WO CON, 04/03/2024, 11:24. FINDINGS: Image quality: Excellent. Bones: Grade 1 retrolisthesis of L1 on L2. L5-S1 fusion and discectomy. No evidence of hardware complication. Degenerative changes of the lumbar spine are present. Disc height loss and degenerative endplate changes are most pronounced at L1-L2. Multilevel facet arthropathy. Moderate central canal stenosis and moderate bilateral neural foraminal stenosis at L1-L2. More mild stenosis is noted other levels. No acute vertebral body compression fractures. No suspicious lytic or blastic bony lesions. No pars defects. Soft tissues: No retroperitoneal masses or hematomas. Visualized aorta is normal in caliber. IMPRESSION: L5-S1 fusion hardware without evidence of complication. Multilevel degenerative changes of the lumbar spine, most pronounced at L1-L2. Dictated by: Osei Delcid M.D. on 11/15/2024 at 8:41 Approved by: Osei Delcid M.D. on 11/15/2024 at 9:11
== END ==
LOC: CT 11:17
PROVIDERS: PCP Physician Assistant; Referring Provider Physician Assistant; Visit Provider Physician Assistant
DX: M47.816 Spondylosis without myelopathy or radiculopathy, lumbar region (principal); M48.061 Spinal stenosis, lumbar region without neurogenic claudication; M54.50 Low back pain, unspecified; M79.605 Pain in left leg; Z98.1 Arthrodesis status
CPT/HCPCS: 72131

== ENCOUNTER 2025-02-19 14:52 | Outpatient (CLI) | payer OTHER, SELFPAY ==
[2025-02-19] VITALS (8 sets, daily range): BP systolic 127–161; BP diastolic 75–94; PULSE 71–84; RESP 14–20; TEMP 37.1; O2SAT 98–100
[2025-02-19] MEDS: MIDAZOLAM 2 MG/2 ML VIAL IV (16:38)
[2025-02-19] MEDS: LIDOCAINE 1% 20 ML 5 ML INJ (16:42)
--- NOTE | 2025-02-19 16:57 | PM.PROC.IR.1 ---
Date/Time/Diagnoses Date of procedure: 02/19/25 Time of procedure: 16:57 Pre-procedure diagnosis: FACET ARTHROPATHY Post-procedure diagnosis: same Procedure Notes Procedure: 1. BILATERAL L3, L4 AND L5 DIAGNOSTIC MB BLOCKS Indications: Raj is referred by PAC Sanchez for treatment of Bilateral Axial LBP. Physician: Miquel Krause Total Fluoroscopy time (seconds): 11 Total sedation minutes: 16 Complications: none Procedure in detail & Post-procedure care: DESCRIPTION OF PROCEDURE Fluoroscopically guided, contrast-controlled bilateral L3, L4 and L5 medial branch blocks with 0.5cc of 0.5% Marcaine. Following review of allergy and review of potential side effects and complications, including, but not necessarily limited to, infection, allergic reaction, local tissue breakdown, nerve injury, paralysis, stroke and possible , the patient indicated that the patient understood and agreed to proceed. An informed consent document was signed by the patient, witnessed by a nurse, and placed in the patient's chart. After review of previous anaesthesic history and IV conscious sedation the patient was deemed safe to proceed with today's procedure with IV conscious sedation as ASA class II designation. Safety time-out was performed to confirm patient ID, procedure to be performed and site of procedure. IV sedation was accomplished with a combination of 2mg of Versed was administered by the RN after DO order, titrated to patient comfort during the course of the procedure while the patient remained responsive to all verbal commands In the prone position, following sterile prep and drape of the lumbar region, the right L3, L4 and L5 anatomical location of the medial branch of the dorsal ramus was identified fluoroscopically. Subsequently an anesthetic skin wheal using 1% lidocaine solution was initiated at each of the anatomical spots. Subsequently then a 22-gauge 3.5-inch spinal needle was atraumatically introduced and advanced under fluoroscopic guidance at each of the corresponding sites at the right L3, L4 and L5 MB. After negative aspiration, 0.2cc of Isovue 200 was injected, confirming placement without vascular or intrathecal uptake. Subsequently then 0.5cc of 0.5% Marcaine solution was injected at each of the corresponding sites at the right L3, L4 and L5 medial branch locations. The identical procedure was replicated on the left. The patient tolerated the procedure well without signs or symptoms of complications. The patient tolerated the procedure well without signs or symptoms of complications prior to transfer to the recovery area continued monitoring without incident. Post-procedure, the patient was monitored initiating provocative activities to measure the amount of relief from block of the facetogenic pain. The patient reported a VAS of 7 prior to the procedure and a post-procedure VAS of 1. It has been a pleasure to assist in the diagnostic and therapeutic care of your patient. POST OP INSTRUCTIONS The patient was provided with a Pain Log to complete over the next several hours and subsequent days prior to the patient's follow up with the ordering physician. If the patient has ear nose throat surgeon relief to the solution applied, then they may be a candidate for medial branch rhizotomy. The patient is aware, was provided, once again, with a Pain Log and will follow up with the referring physician for review and clinical correlation
== END 2025-02-19 17:11 | disposition home or self-care (01) ==
LOC: RAD 14:52
PROVIDERS: PCP Physician Assistant; Referring Provider Physical Medicine & Rehabilitation; Visit Provider Physical Medicine & Rehabilitation
DX: M47.816 Spondylosis without myelopathy or radiculopathy, lumbar region (principal)
CPT/HCPCS: 64493; 64494; 99152; J2250

== ENCOUNTER 2025-04-25 12:01 | Outpatient (CLI) | payer OTHER, SELFPAY ==
[2025-04-25] VITALS (9 sets, daily range): BP systolic 112–157; BP diastolic 67–81; PULSE 78–88; RESP 14–20; O2SAT 96–100
[2025-04-25] MEDS: MIDAZOLAM 2 MG/2 ML VIAL IV (14:19)
[2025-04-25] MEDS: LIDOCAINE 1% 20 ML 5 ML INJ (14:22)
[2025-04-25] MEDS: LIDOCAINE 2% INJ MDV 20ML 5 ML INJ (14:22)
--- NOTE | 2025-04-25 14:37 | P.PCN_ITS ---
Date/Time/Diagnoses Date of procedure: 04/25/25 Time of procedure: 14:37 Pre-procedure diagnosis: 1. FACET ARTHROPATHY Post-procedure diagnosis: same Procedure Notes Procedure: 1. BILATERAL L3, L4 AND L5 DIAGNOSTIC MB BLOCKS Indications: Raj is referred by PAC Sanchez for treatment of Bilateral Axial LBP. Physician: Miquel Krause Total Fluoroscopy time (seconds): 10 Total sedation minutes: 12 Complications: none Procedure in detail & Post-procedure care: DESCRIPTION OF PROCEDURE Fluoroscopically guided, contrast-controlled bilateral L3, L4 and L5 medial branch blocks with 0.5cc of 2% Lidocaine. Following review of allergy and review of potential side effects and complications, including, but not necessarily limited to, infection, allergic reaction, local tissue breakdown, nerve injury, paralysis, stroke and possible , the patient indicated that the patient understood and agreed to proceed. An informed consent document was signed by the patient, witnessed by a nurse, and placed in the patient's chart. After review of previous anaesthesic history and IV conscious sedation the patient was deemed safe to proceed with today's procedure with IV conscious sedation as ASA class II designation. Safety time-out was performed to confirm patient ID, procedure to be performed and site of procedure. IV sedation was accomplished with a combination of 2mg of Versed was administered by the RN after DO order, titrated to patient comfort during the course of the procedure while the patient remained responsive to all verbal commands In the prone position, following sterile prep and drape of the lumbar region, the right L3, L4 and L5 anatomical location of the medial branch of the dorsal ramus was identified fluoroscopically. Subsequently an anesthetic skin wheal using 1% lidocaine solution was initiated at each of the anatomical spots. Subsequently then a 22-gauge 3.5-inch spinal needle was atraumatically introduced and advanced under fluoroscopic guidance at each of the corresponding sites at the right L3, L4 and L5 MB. After negative aspiration, 0.2cc of Isovue 200 was injected, confirming placement without vascular or intrathecal uptake. Subsequently then 0.5cc of 2% Lidocaine solution was injected at each of the corresponding sites at the right L3, L4 and L5 medial branch locations. The identical procedure was replicated on the left. The patient tolerated the procedure well without signs or symptoms of complications. The patient tolerated the procedure well without signs or symptoms of complications prior to transfer to the recovery area continued monitoring w ithout incident. Post-procedure, the patient was monitored initiating provocative activities to measure the amount of relief from block of the facetogenic pain. The patient reported a VAS of 7 prior to the procedure and a post-procedure VAS of 1. It has been a pleasure to assist in the diagnostic and therapeutic care of your patient. POST OP INSTRUCTIONS The patient was provided with a Pain Log to complete over the next several hours and subsequent days prior to the patient's follow up with the ordering physician. If the patient has building cleaner relief to the solution applied, then they may be a candidate for medial branch rhizotomy. The patient is aware, was provided, once again, with a Pain Log and will follow up with the referring physician for review and clinical correlation
== END 2025-04-25 16:36 | disposition home or self-care (01) ==
LOC: RAD 12:02
PROVIDERS: PCP Physician Assistant; Referring Provider Physical Medicine & Rehabilitation; Visit Provider Physical Medicine & Rehabilitation
DX: M47.816 Spondylosis without myelopathy or radiculopathy, lumbar region (principal)
CPT/HCPCS: 64493; 64494; 99152; J2250